=== PATIENT | male | born 1945 | race African-American/Black ===

== ENCOUNTER 2017-02-01 10:10 | Emergency (ER) | payer MEDICARE, OTHER ==
[~2017-02-01] VITALS: Ht 190.5 cm; Wt 134.7 kg
[~2017-02-01 10:10] MED LIST: ASPI81CH43 PO; ATOR40TA52 PO; BACIOIN4 TOP; ENA2.5T PO; FURO10IN2 PO; LEVO750T2 PO; METO50TA7 PO; POT20T PO; SACC250C PO; TAMS0.4C36 PO; WARF5TAB71 PO
[2017-02-01 10:40] LABS: Basophils # (auto) 0 uL; Basophils % (auto) 0.5 % (0.0-2.0); CONDITION Y; Eosinophils # (auto) 0.1 uL; Eosinophils % (auto) 1.6 % (0.0-7.0); Hematocrit 47.3 % (41.0-53.0); Hemoglobin 15.7 g/dL (13.5-17.5); Lymphocytes # (auto) 1.7 uL; Mean Corpuscular Hemoglobin 29.6 pg (28.0-32.0); Mean Corpuscular Hgb Conc. 33.3 g/dL (32.0-36.0); Mean Corpuscular Volume 89.1 fL (80.0-100.0); Monocytes # (auto) 1.1 uL; Monocytes % (auto) 12.6 % (0.0-12.0); Neutrophils # (auto) 5.6 uL; Neutrophils % (auto) 65.3 % (37.0-80.0); Platelet Count (auto) 197 10^3/uL (140-450); Red Cell Distribution Width 14.5 % (11.6-16.0); White Blood Cell 8.5 10^3/uL (4.4-10.8)
[2017-02-01] MEDS ORDERED: SODIUM CHLORIDE 0.9% 1,000 ML IV ONE (10:48)
[2017-02-01 11:00] LABS: Albumin 3.8 g/dL (3.4-5.0); Anion Gap 6 (5-15); Aspartate Aminotransferase 30 U/L (15-37); BUN/Creatinine Ratio 20.5; Blood Urea Nitrogen 30 mg/dL (7-18); Calcium 8.9 mg/dL (8.5-10.1); Carbon Dioxide 30 mmol/L (21-32); Chloride 106 mmol/L (98-107); GFR African American 61 mL/min; GFR Non-African American 50 mL/min; Glucose 85 mg/dL (74-106); Potassium 4.5 mmol/L (3.5-5.1); Sodium 142 mmol/L (136-145)
[2017-02-01 11:04] LABS: Alkaline Phosphatase 109 U/L (45-117); Bilirubin, Total 1.2 mg/dL (0.2-1.0)
[2017-02-01 11:39] LABS: Partial Thromboplastin Time 49.7 sec (22.64-33.71)
[2017-02-01 11:41] LABS: Prothrombin Time 45.6 sec (9.37-12.3)
[2017-02-01 11:45] LABS: INR 4.12 (0.9-1.15)
[2017-02-01] MEDS ORDERED: PHYTONADIONE (VIT K)10 MG/ML 1ML VIAL SUBCUT ONE (12:15)
[2017-02-01 13:45] VITALS: BP 140/79
== END 2017-02-01 13:55 | disposition short-term general hospital (02) ==
LOC: ER 10:10
DX: R04.2 Hemoptysis (principal); T45.511A Poisoning by anticoagulants, accidental (unintentional), initial encounter; Y92.89 Other specified places as the place of occurrence of the external cause; I48.91 Unspecified atrial fibrillation; I11.0 Hypertensive heart disease with heart failure; I50.9 Heart failure, unspecified; Z79.82 Long term (current) use of aspirin; Z79.899 Other long term (current) drug therapy
CPT/HCPCS: 36415; 71010; 80053; 84484; 85025; 85610; 85730; 93005; 94761; 96360; 96361; 96372; 99285; J3430